=== PATIENT | male | born 1965 | race African-American/Black ===

== ENCOUNTER 2019-06-07 13:10 | Inpatient (IN) | payer MEDICARE, OTHER ==
[~2019-06-07] VITALS: Ht 188 cm; Wt 72.6 kg
[2019-06-07] MEDS ORDERED: DOCU-141 PO (13:19)
[2019-06-07] MEDS ORDERED: ESCI10TA PO (13:19)
[2019-06-07] MEDS ORDERED: TRAM50TA2 PO (13:19)
[2019-06-07] MEDS ORDERED: CRAN450C PO (13:19)
[2019-06-07] MEDS ORDERED: BISA10SU11 RC (13:19)
[2019-06-07] MEDS ORDERED: SENN-168 PO (13:19)
[2019-06-07] MEDS ORDERED: ACET-868 PO (13:19)
[2019-06-07] MEDS ORDERED: MAGN400O6 PO (13:19)
[2019-06-07] MEDS ORDERED: MAG30ORA PO (13:19)
[2019-06-07] MEDS ORDERED: ACET-2605 PO (13:19)
[2019-06-07] MEDS ORDERED: QUET100T PO (13:19)
--- NOTE | 2019-06-07 13:20 | NUR ---
53 YEAR OLD MALE BIBA [facility] [address] from [facility] psych evaluation "showed agression this am during breakfast to another client". ALERT AND ORIENTED X 2-3 BREATHING EVEN AND UNLABORED WITH NO DISTRESS NOTED. SKIN WARM TO TOUCH AND INTACT. AWAITNG TO BE SEEN BY
[2019-06-07 13:28] LABS: BASOPHILS % (AUTO) 0.6 % (0.0-2.0); HEMATOCRIT 48 % (39-51); HEMOGLOBIN 16.2 g/dL (13.5-17.5); LYMPHOCYTES # (AUTO) 1.7 /CMM (0.8-4.8); LYMPHOCYTES % (AUTO) 30.9 % (20.0-44.0); MEAN CORPUSCULAR HGB CONC 34 g/dl (31.0-36.0); MEAN CORPUSCULAR VOLUME 90 fL (80-96); MONOCYTES # (AUTO) 0.5 /CMM (0.1-1.30); MONOCYTES % (AUTO) 8.8 % (2.0-12.0); NEUTROPHILS # (AUTO) 3.2 /CMM (1.8-8.9); NEUTROPHILS % (AUTO) 57.7 % (43.0-81.0); PLATELET COUNT (AUTO) 252 /CMM (150-450); RED BLOOD CELL COUNT(AUTO) 5.33 MIL/uL (4.5-6.0); WHITE BLOOD COUNT (AUTO) 5.5 K/uL (4.3-11.0)
[2019-06-07 13:29] LABS: BILIRUBIN,URINE Negative (NEGATIVE); BLOOD, URINE Negative Ery/uL (NEGATIVE); KETONES,URINE Negative (NEGATIVE); LEUKOCYTE ESTERASE ,URINE Negative (NEGATIVE); NITRITE, URINE Negative (NEGATIVE); PROTEIN,URINE 30 mg/dl (NEGATIVE); UGLUCOSE Negative (NEGATIVE)
[2019-06-07 13:32] LABS: APPEARANCE,URINE Hazy (CLEAR); COLOR,URINE Dark Yellow (YELLOW)
[2019-06-07 13:35] LABS: CALCIUM, SERUM 8.8 mg/dL (8.5-10.1); CARBON DIOXIDE 27 mmol/L (21-32); CHLORIDE 104 mmol/L (98-107); CREATININE 1.1 mg/dL (0.6-1.3); GLUCOSE 99 mg/dL (74-106); POTASSIUM 4.2 mmol/L (3.5-5.1); SODIUM SERUM 139 mmol/L (136-145); UREA NITROGEN, BLOOD 12 mg/dL (7-18)
[2019-06-07 13:37] LABS: BACTERIA,URINE None seen /HPF (None Seen); RBC,URINE 0-2 /HPF (0-2); SQUAMOUS EPITHELIAL CELL,UR Few /HPF (None Seen); WBC,URINE 0-3 /HPF (0-3)
[2019-06-07 13:41] LABS: ALANINE AMINOTRANSFERASE 23 U/L (12-78); ALBUMIN 3.7 g/dL (3.4-5.0); ALCOHOL, BLOOD < 3 mg/dL (0-0); ALKALINE PHOSPHATASE 53 U/L (46-116); ASPARTATE AMINOTRANSFERASE 18 U/L (15-37); BILIRUBIN,DIRECT 0.1 mg/dL (0.0-0.2); BILIRUBIN,TOTAL 0.5 mg/dL (0.2-1.0); SALICYLATE 2.2 mg/dL (2.8-20.0); TOTAL PROTEIN, SERUM 7.4 g/dL (6.4-8.2)
[2019-06-07 13:42] LABS: ACETAMINOPHEN 0 ug/ml (10-30)
--- NOTE | 2019-06-07 13:49 | NUR ---
CALLED [facility] FOR PSYCH EVAL OF THIS PATIENT
--- NOTE | 2019-06-07 14:16 | NUR ---
CALLED ART, STATES WILL BE HERE SOON.
--- NOTE | 2019-06-07 14:59 | NUR ---
PATIENT REMAINS STABLE IN BED WATCHING T.V WITH NO DISTRESS NOTED. LUNCH WAS PROVIDED FOR PATIENT. WILL CONTINUE TO [facility]. AWAITING TO BE SEEN BY ART FOR PSYCH EVAL
--- NOTE | 2019-06-07 16:18 | NUR ---
REPORT WAS GIVEN TO [facility] [employer]
[2019-06-07] MEDS ORDERED: MAGNESIUM HYDROXIDE 30 ML UDC PO PRN (17:00)
[2019-06-07] MEDS ORDERED: ACETAMINOPHEN 325 MG TABLET PO PRN (17:00)
[2019-06-07] MEDS ORDERED: MAG HYDROX/AL HYDROX/SIMETH 30 ML UDC PO PRN (17:00)
[2019-06-07] MEDS: LORAZEPAM 0.5 MG TABLET PO PRN (17:27)
--- NOTE | 2019-06-07 18:05 | NUR ---
RN-CO: UPON FACE TO FACE EVALUATION, PATIENT NOTED TO BE UNPREDICTABLE, ANGRY, UNCOOPERATIVE AND SUSPICIOUS TO STAFF. HIS SPEECH IS PRESSURED, HE IS MALODOROUS AND DISHEVELED.PT ALSO NOTED TO HAVE DISORGANIZED THOUGHTS.HE ALSO STATED THAT HE HAS AUDITORY HALLUCINATIONS. DR SAENZ IS AWARE OF THE ADMISSION AND GAVE HER ADMITTING ORDERS. ALL BELONGINGS WERE SCREENED OF CONTRABAND, VALUABLES WERE TAKEN TO SAFE. PATIENT'S RIGHTS WERE DISCUSSED AND BOOKLET WAS GIVEN. HE REFUSED SKIN ASSESSMENT AND NOTIFICATION OF [employer].
--- NOTE | 2019-06-07 19:30 | NUR ---
GPS RN NOTE, RECEIVED PATIENT AWAKE AND IN BED, NO S/S OR COMPLAINTS OF PAIN AT THIS TIME. PATIENT IS DISPLAYING NO S/S OF APPARENT DISTRESS AT THIS TIME. PATIENT BREATHING IS UNLABORED WITH EQUAL RISE AND FALL OF THE CHEST. PATIENT IS ALERT AND ORIENTED X 3 ON ROOM AIR WITH A SPO2 OF 99 %. PATIENT IS MED COMPLAINT, DISORGANIZED, ANXIOUS, HYPERVERBAL, ANGRY, COOPERATIVE, AND NEEDS REORIENTATION. PATIENT DENIES SUICIDE AND HOMICIDAL IDEATIONS AT THIS TIME. PATIENT ASSISTED WITH TURNING AND REPOSITIONING Q2HR AND PRN FOR COMFORT AND CIRCULATION. PATIENT HAS NO NEEDS AT THIS TIME. PATIENT EDUCATED ON THE USE OF THE CALL HOFFMAN. PATIENT BED SIDE RAILS ARE UP X 2 FOR SAFETY, BED IS LOCKED, AND LOW WILL CONTINUE TO MONITOR AND MAINTAIN SAFETY.
[2019-06-07] MEDS: TEMAZEPAM 7.5 MG CAPSULE PO PRN (21:40)
--- NOTE | 2019-06-07 21:40 | NUR ---
GPS RN NOTE, PATIENT HAS A COMPLAINT OF NOT BEING ABLE TO SLEEP AND IS REQUESTING RESTORIL AT THIS TIME. PATIENT VITAL SIGNS ARE STABLE. GAVE RESTORIL 7.5 MG PO HS PRN ORDERED. WILL REASSESS FOR INSOMNIA AND I WILL CONTINUE TO MONITOR THIS PATIENT.
--- NOTE | 2019-06-07 22:00 | NUR ---
GPS RN NOTE, PATIENT HAD A WITNESSED FALL IN HALLWAY NEAR NURSING STATION. PATIENT FELL ON HIS LEFT HIP AND DID NOT HIT HIS HEAD AND HAD NO LOSS OF CONSCIOUSNESS. PATIENT ASSISTED UP WITH THE HELP OF TWO STAFF MEMBERS. PATIENT ABLE TO AMBULATE BACK TO BED IN ROOM 216-1 BUT HAS A COMPLAINT OF LEFT HIP PAIN 8 OUT OF 10 ON THE PAIN SCALE. PATIENT VITAL SIGNS ARE FOLLOWS B/PO 126/79, PULSE 72, TEMP 98.3, RESPIRATIONS 18, SPO2 99% ON ROOM AIR. PAGED [facility] AND INFORMED DR VERNON RIVERA OF MY FINDINGS. DR VERNON RIVERA ORDER TO DO LEFT HIP X-RAY 2 VIEWS STAT AND TO GIVE NORCO 5-325 1 TAB PO Q6 HR PRN. VOCATIONAL TRAINING INSTRUCTOR MADE AWARE OF FALL. PATIENT HAS NO FAMILY TO NOTIFY OF FALL. ALL ORDERS NOTED AND CARRIED OUT. WILL CONTINUE TO MONITOR THIS PATIENT.
[2019-06-07] MEDS ORDERED: HYDROCODONE/APAP 5/325MG 1 EACH TABLET PO PRN (23:30)
--- NOTE | 2019-06-08 06:15 | NUR ---
GPS RN NOTE, DR VERNON RIVERA MADE AWARE OF PATIENT LEFT HIP X-RAY RESULTS. WILL CONTINUE TO MONITOR THIS PATIENT.
[2019-06-08 07:17] LABS: ALBUMIN 3.4 g/dL (3.4-5.0); BILIRUBIN,TOTAL 0.6 mg/dL (0.2-1.0); CALCIUM, SERUM 8.7 mg/dL (8.5-10.1); POTASSIUM 3.9 mmol/L (3.5-5.1); TOTAL PROTEIN, SERUM 6.9 g/dL (6.4-8.2)
[2019-06-08] MEDS: LORAZEPAM 0.5 MG TABLET PO PRN (08:38)
[2019-06-08] MEDS ORDERED: SENNOSIDES 8.6 MG TABLET PO PRN (11:30)
[2019-06-08] MEDS ORDERED: ACETAMINOPHEN 325 MG TABLET PO PRN (11:30)
[2019-06-08] MEDS ORDERED: MAG HYDROX/AL HYDROX/SIMETH 30 ML UDC PO PRN (11:30)
[2019-06-08] MEDS ORDERED: MISCELLANEOUS MED 1 EA EA PO PRN (11:30)
[2019-06-08] MEDS ORDERED: MAGNESIUM HYDROXIDE 30 ML UDC PO PRN (11:30)
[2019-06-08] MEDS ORDERED: TRAMADOL HCL 50 MG TABLET PO PRN (11:30)
[2019-06-08] MEDS ORDERED: BISACODYL SUPP (10 MG) 10 MG/SUPP.RECT SUPP.RECT RC PRN (11:30)
[2019-06-08] MEDS: risperiDONE 1 MG TABLET PO SCH ×2 (13:57→22:03)
[2019-06-08 16:00] VITALS: BP 115/65
[2019-06-08] MEDS: DOCUSATE SODIUM 100 MG CAPSULE PO SCH (17:08)
[2019-06-08 20:22] VITALS: BP 126/76
[2019-06-08] MEDS: TEMAZEPAM 7.5 MG CAPSULE PO PRN (22:03)
[2019-06-09 08:00] VITALS: BP 117/67
[2019-06-09] MEDS: LORAZEPAM 0.5 MG TABLET PO PRN (08:25)
[2019-06-09] MEDS: risperiDONE 1 MG TABLET PO SCH (08:25)
[2019-06-09] MEDS: DOCUSATE SODIUM 100 MG CAPSULE PO SCH ×2 (08:25→16:50)
[2019-06-09] MEDS ORDERED: Medication Not On Formulary EA (Cranberry Fruit Concentrate (Cranberry) 450 MG) PO SCH (09:00)
[2019-06-09] MEDS ORDERED: diphenhydrAMINE HCL 50 MG/ML VIAL IV ONE (09:00)
--- NOTE | 2019-06-09 09:00 | NUR ---
NURSE NOTE RECEIVED PT IN HIS BED LYING APPEARED TO BE SLEEPING IN STABLE CONDITION
[2019-06-09] MEDS ORDERED: diphenhydrAMINE HCL 50 MG/ML VIAL IM ONE (09:30)
--- NOTE | 2019-06-09 09:30 | NUR ---
NURSE NOTE PT IS VERY SEXUAL FOCUSED OPENING UP HIS HOSPITAL GROWN, PT INSTRUCTED TO COVER HIS CLOTHS, AND INSTRUCTED NOT TO EXPOSED HIS HIM SELF AGAIN. PT TOOK HIS MEDICATION AND STARTED COMPLAINING OF HAVING SIDE EFFECT OF THE MEDICATION, DR WERE CALLED AND SHE GAVE ORDER FOR BENADYL. IM SHOT WERE GIVEN.
--- NOTE | 2019-06-09 11:36 | NUR ---
Initial Discharge Plan: Pt currently resides at [facility] located at [address] [place] [address]; ([phone]). Per pt, he would like to return to the facility. SW will work with the MD and the pt regarding appropriate discharge planning. SW will form a safe and proper discharge.
[2019-06-09 16:00] VITALS: BP 105/59
[2019-06-09] MEDS: QUETIAPINE FUMARATE 25 MG TABLET PO SCH (16:51)
[2019-06-09] MEDS: BENZTROPINE MESYLATE (1 MG) 1 MG TABLET PO SCH (16:51)
--- NOTE | 2019-06-09 17:05 | NUR ---
NURSE NOTE DR CHANGE PT MEDICATION RISPERDAL TO SEROQUEL, PT STILL FOCUSED ON THE RISPERDAL ASKING WHY DR GIVE HIM RISPERDAL IN FIRST PLACE, PT ASKING REPEATED QUESTIONS OVER AND OVER, PT INSTRUCTED TO WRITE DOWN ALL HIS QUESTIONS AND ASKED DR TOMORROW.
[2019-06-09 19:59] VITALS: BP 128/76
[2019-06-09] MEDS ORDERED: QUETIAPINE FUMARATE 100 MG TABLET PO SCH (22:00)
[2019-06-09] MEDS: TEMAZEPAM 7.5 MG CAPSULE PO PRN (22:13)
[2019-06-10 08:00] VITALS: BP 100/59
[2019-06-10] MEDS: QUETIAPINE FUMARATE 25 MG TABLET PO SCH ×2 (08:43→17:27)
[2019-06-10] MEDS: LORAZEPAM 0.5 MG TABLET PO PRN (08:43)
[2019-06-10] MEDS: DOCUSATE SODIUM 100 MG CAPSULE PO SCH ×2 (08:43→17:27)
[2019-06-10] MEDS: BENZTROPINE MESYLATE (1 MG) 1 MG TABLET PO SCH ×2 (08:43→17:27)
--- NOTE | 2019-06-10 10:00 | NUR ---
NURSE NOTE PT TOOK HIS MEDICATION, NO DISTRESS NOTED
--- NOTE | 2019-06-10 15:20 | NUR ---
Group Note: Pt refused to attend group on 06/10/19 at 2pm and stated that he would much rather "roam the halls."
--- NOTE | 2019-06-10 15:57 | NUR ---
CALLED DR. HICKS AND NOTIFIED THAT PT. HAS MRSA AND ORDERED BACTROBAN OINTMENT Q12HR X7DAYS
[2019-06-10 16:00] VITALS: BP 106/69
--- NOTE | 2019-06-10 16:50 | NUR ---
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
[2019-06-10 20:00] VITALS: BP 110/66
[2019-06-10] MEDS: TEMAZEPAM 7.5 MG CAPSULE PO PRN (21:07)
[2019-06-10] MEDS: MUPIROCIN OINT 2% 22 GM TUBE SCH (21:07)
[2019-06-10] MEDS ORDERED: QUETIAPINE FUMARATE 100 MG TABLET PO SCH (22:00)
[2019-06-11 08:00] VITALS: BP 112/75
[2019-06-11] MEDS: DOCUSATE SODIUM 100 MG CAPSULE PO SCH ×2 (08:54→17:40)
[2019-06-11] MEDS: MUPIROCIN OINT 2% 22 GM TUBE SCH ×2 (08:55→21:24)
[2019-06-11] MEDS: BENZTROPINE MESYLATE (1 MG) 1 MG TABLET PO SCH (08:55)
[2019-06-11] MEDS: LORAZEPAM 0.5 MG TABLET PO PRN (08:55)
[2019-06-11] MEDS: QUETIAPINE FUMARATE 25 MG TABLET PO SCH ×2 (08:55→17:41)
--- NOTE | 2019-06-11 09:30 | NUR ---
NURSE NOTE PT REFUSED MEDICATION STATED I DONT WANT TO TAKE IT, I DONT FEEL LIKE TALKING MEDICATION TODAY, PT ENCOURAGED TO TAKE MEDS STILL REFUSED,, BOTH MEDICAL AND PSYCH DOCTORS NOTIFIED.
[2019-06-11] MEDS ORDERED: diphenhydrAMINE HCL 25 MG CAPSULE PO PRN (11:00)
--- NOTE | 2019-06-11 11:33 | NUR ---
SW informed the pt that he would be discharged back to [facility] on Friday if he is medically and psychiatrically cleared. Pt stated that he wants to return there as soon as possible.
--- NOTE | 2019-06-11 12:50 | NUR ---
NURSE NOTE PT TOOK HIS MORNING HIS MORNING MEDICATION.
--- NOTE | 2019-06-11 14:30 | NUR ---
SW conducted a substance abuse intervention with the pt due to his alcohol and drug abuse.
--- NOTE | 2019-06-11 15:15 | NUR ---
Group Note: Pt refused to attend group on 06/11/19 at 2pm and stated that he was going to be discharged soon and so group is not necessary.
[2019-06-11 16:00] VITALS: BP 145/94
--- NOTE | 2019-06-11 16:00 | NUR ---
NURSE NOTE PT KEEP PACING IN THE HALLWAY IN STABLE CONDITION DENIED ANY DISTRESS
--- NOTE | 2019-06-11 19:39 | NUR ---
GPS RN NOTES RECEIVED PT ON BED. COMFORTABLE, RELAX. NO AGGRESSIVE BEHAVIOR NOTED.
[2019-06-11 20:03] VITALS: BP 125/79
[2019-06-11] MEDS: QUETIAPINE FUMARATE 100 MG TABLET PO SCH (21:24)
--- NOTE | 2019-06-11 23:55 | NUR ---
GPS RN NOTES PT AGITATED TOWARDS STAFF. REDIRECTED PT TO HIS ROOM. PT COMPLIANT. WILL MONITOR PT BEHAVIOR CLOSELY.
[2019-06-12 08:00] VITALS: BP 111/73
[2019-06-12] MEDS: QUETIAPINE FUMARATE 25 MG TABLET PO SCH ×2 (09:32→17:37)
[2019-06-12] MEDS: DOCUSATE SODIUM 100 MG CAPSULE PO SCH ×2 (09:32→17:37)
[2019-06-12] MEDS: MUPIROCIN OINT 2% 22 GM TUBE SCH ×2 (09:32→21:53)
--- NOTE | 2019-06-12 15:19 | NUR ---
DR. RUIZ SPOKE TO PT. REGARDING PSYCH MEDS.
[2019-06-12 16:00] VITALS: BP 126/78
--- NOTE | 2019-06-12 18:24 | NUR ---
NO CHANGE IN STATUS.
[2019-06-12 20:06] VITALS: BP 107/67
[2019-06-12] MEDS: QUETIAPINE FUMARATE 100 MG TABLET PO SCH (21:36)
[2019-06-13 08:00] VITALS: BP 100/58
[2019-06-13] MEDS: MUPIROCIN OINT 2% 22 GM TUBE SCH ×2 (08:49→21:38)
[2019-06-13] MEDS: QUETIAPINE FUMARATE 25 MG TABLET PO SCH ×2 (08:50→17:12)
[2019-06-13] MEDS: DOCUSATE SODIUM 100 MG CAPSULE PO SCH ×2 (08:50→17:12)
[2019-06-13 16:00] VITALS: BP 133/87
[2019-06-13 20:36] VITALS: BP 128/81
[2019-06-13] MEDS: QUETIAPINE FUMARATE 100 MG TABLET PO SCH (21:38)
[2019-06-13] MEDS: TEMAZEPAM 7.5 MG CAPSULE PO PRN (23:12)
[2019-06-14 08:00] VITALS: BP 115/76
[2019-06-14] MEDS: QUETIAPINE FUMARATE 25 MG TABLET PO SCH (08:55)
[2019-06-14] MEDS: DOCUSATE SODIUM 100 MG CAPSULE PO SCH (08:55)
[2019-06-14] MEDS: MUPIROCIN OINT 2% 22 GM TUBE SCH (09:03)
--- NOTE | 2019-06-14 11:08 | NUR ---
RN-CO: PATIENT REMAINS COOPERATIVE TO CARE, DENIED SUICIDAL AND HOMICIDAL IDEATION, DENIED AUDITORY AND VISUAL HALLUCINATION. MEDICALLY CLEARED BY DR CEDRICK ROCKWELL. DR SAENZ ORDERED TO DISCONTINUE HOLD AND DISCHARGE PATIENT TODAY. ALL BELONGINGS WILL BE GIVEN BACK TO THE PATIENT. DANIELLE DO EXPLAINED THE DISCHARGE PAPERS AND INSTRUCTIONS AND HE VERBALIZED UNDERSTANDING.
--- NOTE | 2019-06-14 11:15 | NUR ---
HEIDI faxed updated clinical paperwork to [facility] with attention to Ry to the fax number: [phone].
[2019-06-14] MEDS: LORAZEPAM 0.5 MG TABLET PO PRN (14:01)
--- NOTE | 2019-06-14 14:50 | NUR ---
NURSE NOTE CALLED FOR REPORT TO RADHA GONZALEZ, GAVE REPORT TO LUCY THE CHARGE NURSE, PSYCHIATRIST AND MEDICAL DOCTOR DISCHARGE PT BACK TO FACILITY, PT IN STABLE CONDITION DENIED ANY PAIN OR DISCOMFORT AT THIS TIME, DENIED ANY SI. PT PICKED UP BY AMBULANCE, ALL BELONGINGS GIVEN TO PATIENT.
--- NOTE | 2019-06-14 15:50 | NUR ---
Discharge Note: Pt was discharged to [facility] ([facility]) located at [address] [place] [address] ([phone]). Pt was transported via [facility] at 2PM. Upon discharge, the pt appeared to be in a euthymic mood and presented with a calm affect. Pt denied both suicidal and homicidal ideation as well as auditory and visual hallucinations. Pt was provided with substance abuse and smoking cessation referrals. Pt will be under the care of his psychiatrist, Dr. Rodriguez, located at [address] [address], [place] [address]; and her supply chain assistant, Dr. Evelyne Damon, located at [address] [place] [address]; .
== END 2019-06-14 14:45 | DRG 885 ==
LOC: ER 13:15 → GPS 16:26
PROVIDERS: ADMIT Psychiatry & Neurology Psychosomatic Medicine
DX: F20.0 Paranoid schizophrenia (principal); F29 Unspecified psychosis not due to a substance or known physiological condition; F41.9 Anxiety disorder, unspecified; F15.10 Other stimulant abuse, uncomplicated; F19.90 Other psychoactive substance use, unspecified, uncomplicated; Z79.899 Other long term (current) drug therapy; F32.9 Major depressive disorder, single episode, unspecified; K59.00 Constipation, unspecified; Z73.6 Limitation of activities due to disability
CPT/HCPCS: 36415; 73502; 80048-TC; 80053-TC; 80061-TC; 80076-TC; 80305; 81000-TC; 85025-TC; 87081-TC; G0480; J1200